=== PATIENT | female | born 1940 | race Caucasian/White ===

== ENCOUNTER 2024-06-15 21:34 | Inpatient (IN) | payer MEDICARE, OTHER ==
[2024-06-15 22:03] LABS: HEMATOCRIT 39.9 % (34.2-48.2); HEMOGLOBIN 12.9 g/dL (11.4-15.5); MEAN CORPUSCULAR HGB CONC 32.4 g/dL (31.9-34.8); MEAN CORPUSCULAR VOLUME 92.9 fL (76.7-100.5); MEAN PLATELET VOLUME 7.5 fL (7.1-12.4); PLATELET COUNT,PLT 573 x10(3)uL (151-488); RED CELL DISTRIBUTION WIDTH 14.8 % (12.3-16.5); WHITE BLOOD CELL COUNT,WBC 20.7 x10-3/uL (3.0-10.3)
[2024-06-15 22:09] LABS: BLOOD UREA NITROGEN,BUN 23 mg/dL (7-18); CALCIUM 9.4 mg/dL (8.6-10.2); CARBON DIOXIDE,CO2 25 mmol/L (21-32); CHLORIDE,CL 105 mmol/L (100-110); ESTIMATED GFR 56 mL/min (>60); GLUCOSE RANDOM 124 mg/dL (80-116); POTASSIUM,K 3.5 mmol/L (3.5-5.3); SODIUM,NA 145 mmol/L (135-145)
[2024-06-15 22:15] LABS: A/G RATIO 0.4; ALANINE AMINOTRANSFERASE,ALT 99 U/L (12-36); ALBUMIN 2.3 g/dL (3.2-4.6); ALKALINE PHOSPHATASE 166 IU/L (56-112); ASPARTATE AMNIOTRANSFERASE,AST 81 IU/L (5-25); BILIRUBIN TOTAL 0.7 mg/dL (0.1-1.3); MAGNESIUM 2.2 mg/dL (1.8-2.5); PROTEIN TOTAL,TP 7.9 g/dL (6.0-8.0)
[2024-06-15 22:17] LABS: TROPONIN I 27.7 pg/mL (4.0-60.3)
[2024-06-15 22:20] LABS: BAND PERCENT MAN 4 % (0-6); LYMPHOCYTES PERCENT MAN 4 % (13-37); MONOCYTES PERCENT MAN 5 % (4-12); SEG NEUTROPHILS PERCENT MAN 87 % (46-82)
[2024-06-15] MEDS: Sodium Chloride 0.9% 1,000 ML IV ONE ×2 (22:22→23:50)
[2024-06-15 22:24] LABS: LACTIC ACID 2.7 mmol/L (0.4-2.0)
[2024-06-15 22:26] LABS: C-REACTIVE PROTEIN 15.8 mg/dL (<0.50)
[2024-06-15 22:33] LABS: CREATINE KINASE,CK 1364 IU/L (60-160)
[2024-06-15 23:17] LABS: APPEARANCE,URINE CLOUDY (CLEAR); COLOR,URINE YELLOW (YELLOW)
[2024-06-15 23:23] LABS: BILIRUBIN,URINE SMALL (NEGATIVE); GLUCOSE,URINE NORMAL (NORMAL); KETONES,URINE 50 mg/dL (NEGATIVE); PROTEIN,URINE 30 mg/dL (NEGATIVE)
[2024-06-15 23:24] LABS: LEUKOCYTE ESTERASE,URINE NEGATIVE (NEGATIVE); NITRITE,URINE NEGATIVE (NEGATIVE); OCCULT BLOOD,URINE LARGE (NEGATIVE); RBC,URINE 50-75 (0-5); UROBILINOGEN,URINE 1 mg/dL (NEGATIVE)
[2024-06-15 23:25] LABS: BACTERIA,URINE FEW (NS); HYALINE CASTS,URINE FEW (NS); SQUAMOUS EPITHELIAL CELLS,UR MODERATE (NS,R,O)
[2024-06-15 23:26] LABS: MUCUS,URINE NUMEROUS (NS)
[2024-06-16] MEDS: cefTRIAXone 1 GM Vial IVPUSH ONE (02:34)
[2024-06-16] MEDS: Sodium Chloride 0.9% 10 ML Syringe FLUSH PRN (02:39)
[2024-06-16] MEDS: Sodium Chloride 0.9% 1,000 ML IV SCH ×2 (02:43→17:33)
[2024-06-16] MEDS: guaiFENesin/Dextromethorphan 100-10 MG/5 ML Soln 5 ML Cup PO PRN (05:46)
[2024-06-16 07:06] LABS: HEMATOCRIT 31.4 % (34.2-48.2); HEMOGLOBIN 10.5 g/dL (11.4-15.5); MEAN CORPUSCULAR HEMOGLOBIN 30.5 pg (23.9-33.9); MEAN CORPUSCULAR HGB CONC 33.4 g/dL (31.9-34.8); MEAN CORPUSCULAR VOLUME 91.4 fL (76.7-100.5); MEAN PLATELET VOLUME 7.4 fL (7.1-12.4); PLATELET COUNT,PLT 481 x10(3)uL (151-488); RED BLOOD CELL COUNT 3.44 x10(6)uL (3.60-5.20); RED CELL DISTRIBUTION WIDTH 13.4 % (12.3-16.5)
[2024-06-16 07:10] LABS: A/G RATIO 0.4; ALANINE AMINOTRANSFERASE,ALT 91 U/L (12-36); ALBUMIN 1.8 g/dL (3.2-4.6); ALKALINE PHOSPHATASE 137 IU/L (56-112); ASPARTATE AMNIOTRANSFERASE,AST 98 IU/L (5-25); BILIRUBIN TOTAL 0.4 mg/dL (0.1-1.3); BLOOD UREA NITROGEN,BUN 18 mg/dL (7-18); BUN/CREATININE RATIO 22.5 (9-20); CALCIUM 7.9 mg/dL (8.6-10.2); CARBON DIOXIDE,CO2 23 mmol/L (21-32); CHLORIDE,CL 109 mmol/L (100-110); CREATININE 0.8 mg/dL (0.55-1.02); ESTIMATED GFR 73 mL/min (>60); GLUCOSE RANDOM 110 mg/dL (80-116); POTASSIUM,K 2.9 mmol/L (3.5-5.3); PROTEIN TOTAL,TP 6.2 g/dL (6.0-8.0); SODIUM,NA 144 mmol/L (135-145)
[2024-06-16 07:44] LABS: CREATINE KINASE,CK 1146 IU/L (60-160)
[2024-06-16 07:49] LABS: LYMPHOCYTES PERCENT MAN 8 % (13-37); MONOCYTES PERCENT MAN 7 % (4-12); SEG NEUTROPHILS PERCENT MAN 85 % (46-82)
[2024-06-16] MEDS ORDERED: cefTRIAXone 1 GM in Sodium Chloride 0.9% 50 ML IV SCH (08:00)
[2024-06-16] MEDS: atorvaSTATin 10 MG Tab PO SCH (10:18)
[2024-06-16] MEDS: Potassium Chloride 20 MEQ Tab.ER PO SCH (10:18)
[2024-06-16] MEDS: Enoxaparin 40 MG/0.4 ML Syringe SUBCUT SCH (10:19)
[2024-06-16] MEDS: Azithromycin 250 MG Tab PO ONE (18:20)
[2024-06-16] MEDS: cefTRIAXone 1 GM Vial IVPUSH SCH (20:37)
[2024-06-17] MEDS: Benzonatate 100 MG Cap PO PRN (02:29)
[2024-06-17 06:03] LABS: BASOPHILS PERCENT AUTO 0.3 % (0.2-1.5); EOSINOPHILS ABSOLUTE AUTO 0.4 x10-3/uL (0.0-0.8); EOSINOPHILS PERCENT AUTO 2.9 % (0.6-8.1); HEMATOCRIT 31.8 % (34.2-48.2); HEMOGLOBIN 10.8 g/dL (11.4-15.5); LYMPHOCYTES ABSOLUTE AUTO 1.7 x10-3/uL (1.0-4.4); LYMPHOCYTES PERCENT AUTO 12.7 % (18.4-52.1); MEAN CORPUSCULAR HEMOGLOBIN 30.9 pg (23.9-33.9); MEAN CORPUSCULAR HGB CONC 33.9 g/dL (31.9-34.8); MEAN PLATELET VOLUME 7.2 fL (7.1-12.4); MONOCYTES ABSOLUTE AUTO 1.1 x10-3/uL (0.3-1.0); NEUTROPHILS ABSOLUTE AUTO 10.2 x10-3/uL (1.5-6.3); NEUTROPHILS PERCENT AUTO 76.1 % (30.8-76.2); PLATELET COUNT,PLT 490 x10(3)uL (151-488); RED BLOOD CELL COUNT 3.49 x10(6)uL (3.60-5.20); RED CELL DISTRIBUTION WIDTH 13.9 % (12.3-16.5); WHITE BLOOD CELL COUNT,WBC 13.3 x10-3/uL (3.0-10.3)
[2024-06-17 06:23] LABS: A/G RATIO 0.4; ALANINE AMINOTRANSFERASE,ALT 84 U/L (12-36); ALBUMIN 1.8 g/dL (3.2-4.6); ALKALINE PHOSPHATASE 125 IU/L (56-112); ASPARTATE AMNIOTRANSFERASE,AST 76 IU/L (5-25); BILIRUBIN TOTAL 0.5 mg/dL (0.1-1.3); BLOOD UREA NITROGEN,BUN 8 mg/dL (7-18); CALCIUM 8.2 mg/dL (8.6-10.2); CARBON DIOXIDE,CO2 25 mmol/L (21-32); CHLORIDE,CL 106 mmol/L (100-110); CREATININE 0.8 mg/dL (0.55-1.02); ESTIMATED GFR 73 mL/min (>60); GLUCOSE RANDOM 95 mg/dL (80-116); POTASSIUM,K 3.1 mmol/L (3.5-5.3); PROTEIN TOTAL,TP 6.2 g/dL (6.0-8.0); SODIUM,NA 142 mmol/L (135-145)
[2024-06-17 06:27] LABS: CREATINE KINASE,CK 689 IU/L (60-160)
[2024-06-17] MEDS: Potassium Chloride 20 MEQ Tab.ER PO SCH (09:13)
[2024-06-17 09:41] LABS: BILIRUBIN,URINE NEGATIVE (NEGATIVE); GLUCOSE,URINE NORMAL (NORMAL); KETONES,URINE NEGATIVE (NEGATIVE); LEUKOCYTE ESTERASE,URINE NEGATIVE (NEGATIVE); NITRITE,URINE NEGATIVE (NEGATIVE); OCCULT BLOOD,URINE NEGATIVE (NEGATIVE); PROTEIN,URINE NEGATIVE (NEGATIVE); UROBILINOGEN,URINE NORMAL (NEGATIVE)
[2024-06-17 09:47] LABS: APPEARANCE,URINE CLEAR (CLEAR); COLOR,URINE YELLOW (YELLOW); SQUAMOUS EPITHELIAL CELLS,UR FEW (NS,R,O); WBC,URINE 0-5 (0-5)
[2024-06-17 09:48] LABS: BACTERIA,URINE FEW (NS)
[2024-06-17] MEDS: Azithromycin 250 MG Tab PO SCH (17:13)
[2024-06-18 06:22] LABS: BASOPHILS PERCENT AUTO 0.3 % (0.2-1.5); EOSINOPHILS ABSOLUTE AUTO 0.2 x10-3/uL (0.0-0.8); EOSINOPHILS PERCENT AUTO 2.2 % (0.6-8.1); HEMATOCRIT 31.7 % (34.2-48.2); HEMOGLOBIN 10.9 g/dL (11.4-15.5); LYMPHOCYTES ABSOLUTE AUTO 1.6 x10-3/uL (1.0-4.4); LYMPHOCYTES PERCENT AUTO 14.7 % (18.4-52.1); MEAN CORPUSCULAR HEMOGLOBIN 31.4 pg (23.9-33.9); MEAN CORPUSCULAR HGB CONC 34.3 g/dL (31.9-34.8); MEAN CORPUSCULAR VOLUME 91.5 fL (76.7-100.5); MEAN PLATELET VOLUME 7.1 fL (7.1-12.4); MONOCYTES PERCENT AUTO 9.4 % (4.4-15.7); NEUTROPHILS PERCENT AUTO 73.4 % (30.8-76.2); PLATELET COUNT,PLT 448 x10(3)uL (151-488); RED BLOOD CELL COUNT 3.46 x10(6)uL (3.60-5.20); RED CELL DISTRIBUTION WIDTH 13.8 % (12.3-16.5)
[2024-06-18 06:31] LABS: A/G RATIO 0.4; ALANINE AMINOTRANSFERASE,ALT 81 U/L (12-36); ALBUMIN 1.9 g/dL (3.2-4.6); ALKALINE PHOSPHATASE 118 IU/L (56-112); ASPARTATE AMNIOTRANSFERASE,AST 62 IU/L (5-25); BILIRUBIN TOTAL 0.4 mg/dL (0.1-1.3); BLOOD UREA NITROGEN,BUN 9 mg/dL (7-18); BUN/CREATININE RATIO 11.3 (9-20); CALCIUM 8.5 mg/dL (8.6-10.2); CARBON DIOXIDE,CO2 27 mmol/L (21-32); CHLORIDE,CL 107 mmol/L (100-110); CREATININE 0.8 mg/dL (0.55-1.02); ESTIMATED GFR 73 mL/min (>60); GLUCOSE RANDOM 102 mg/dL (80-116); POTASSIUM,K 3.4 mmol/L (3.5-5.3); PROTEIN TOTAL,TP 6.3 g/dL (6.0-8.0); SODIUM,NA 143 mmol/L (135-145)
[2024-06-18] MEDS: Potassium Chloride 20 MEQ Tab.ER PO ONE (09:47)
[2024-06-19 06:20] LABS: BASOPHILS ABSOLUTE AUTO 0.1 x10-3/uL (0.0-0.1); BASOPHILS PERCENT AUTO 0.5 % (0.2-1.5); EOSINOPHILS ABSOLUTE AUTO 0.3 x10-3/uL (0.0-0.8); EOSINOPHILS PERCENT AUTO 2.8 % (0.6-8.1); HEMATOCRIT 35.7 % (34.2-48.2); HEMOGLOBIN 11.6 g/dL (11.4-15.5); LYMPHOCYTES ABSOLUTE AUTO 1.8 x10-3/uL (1.0-4.4); LYMPHOCYTES PERCENT AUTO 15.4 % (18.4-52.1); MEAN CORPUSCULAR HEMOGLOBIN 29.4 pg (23.9-33.9); MEAN CORPUSCULAR HGB CONC 32.4 g/dL (31.9-34.8); MEAN CORPUSCULAR VOLUME 90.9 fL (76.7-100.5); MEAN PLATELET VOLUME 7.2 fL (7.1-12.4); MONOCYTES ABSOLUTE AUTO 1.1 x10-3/uL (0.3-1.0); MONOCYTES PERCENT AUTO 9.3 % (4.4-15.7); NEUTROPHILS ABSOLUTE AUTO 8.6 x10-3/uL (1.5-6.3); PLATELET COUNT,PLT 504 x10(3)uL (151-488); RED BLOOD CELL COUNT 3.93 x10(6)uL (3.60-5.20); RED CELL DISTRIBUTION WIDTH 14.3 % (12.3-16.5); WHITE BLOOD CELL COUNT,WBC 11.9 x10-3/uL (3.0-10.3)
[2024-06-19 06:29] LABS: A/G RATIO 0.4; ALANINE AMINOTRANSFERASE,ALT 87 U/L (12-36); ALKALINE PHOSPHATASE 113 IU/L (56-112); ASPARTATE AMNIOTRANSFERASE,AST 61 IU/L (5-25); BILIRUBIN TOTAL 0.4 mg/dL (0.1-1.3); BLOOD UREA NITROGEN,BUN 9 mg/dL (7-18); BUN/CREATININE RATIO 11.3 (9-20); CALCIUM 8.6 mg/dL (8.6-10.2); CARBON DIOXIDE,CO2 28 mmol/L (21-32); CHLORIDE,CL 105 mmol/L (100-110); CREATININE 0.8 mg/dL (0.55-1.02); ESTIMATED GFR 73 mL/min (>60); GLUCOSE RANDOM 107 mg/dL (80-116); MAGNESIUM 2.1 mg/dL (1.8-2.5); POTASSIUM,K 3.6 mmol/L (3.5-5.3); PROTEIN TOTAL,TP 6.6 g/dL (6.0-8.0); SODIUM,NA 142 mmol/L (135-145)
[2024-06-19] MEDS: Acetaminophen 325 MG Tab PO PRN (13:04)
[2024-06-19] MEDS: Melatonin 3 MG Tab PO PRN (21:34)
[2024-06-20 06:56] LABS: A/G RATIO 0.5; ALANINE AMINOTRANSFERASE,ALT 83 U/L (12-36); ALBUMIN 2.1 g/dL (3.2-4.6); ALKALINE PHOSPHATASE 104 IU/L (56-112); ASPARTATE AMNIOTRANSFERASE,AST 54 IU/L (5-25); BILIRUBIN TOTAL 0.3 mg/dL (0.1-1.3); BLOOD UREA NITROGEN,BUN 10 mg/dL (7-18); BUN/CREATININE RATIO 12.5 (9-20); CALCIUM 8.6 mg/dL (8.6-10.2); CARBON DIOXIDE,CO2 30 mmol/L (21-32); CHLORIDE,CL 105 mmol/L (100-110); CREATININE 0.8 mg/dL (0.55-1.02); ESTIMATED GFR 73 mL/min (>60); GLUCOSE RANDOM 96 mg/dL (80-116); POTASSIUM,K 3.5 mmol/L (3.5-5.3); PROTEIN TOTAL,TP 6.7 g/dL (6.0-8.0); SODIUM,NA 142 mmol/L (135-145)
[2024-06-20 07:30] LABS: BASOPHILS ABSOLUTE AUTO 0.1 x10-3/uL (0.0-0.1); BASOPHILS PERCENT AUTO 0.8 % (0.2-1.5); EOSINOPHILS ABSOLUTE AUTO 0.4 x10-3/uL (0.0-0.8); EOSINOPHILS PERCENT AUTO 3.4 % (0.6-8.1); HEMATOCRIT 36.9 % (34.2-48.2); HEMOGLOBIN 11.4 g/dL (11.4-15.5); LYMPHOCYTES ABSOLUTE AUTO 1.9 x10-3/uL (1.0-4.4); MEAN CORPUSCULAR HEMOGLOBIN 28.3 pg (23.9-33.9); MEAN CORPUSCULAR HGB CONC 30.8 g/dL (31.9-34.8); MEAN CORPUSCULAR VOLUME 91.9 fL (76.7-100.5); MEAN PLATELET VOLUME 7.8 fL (7.1-12.4); NEUTROPHILS ABSOLUTE AUTO 7.3 x10-3/uL (1.5-6.3); NEUTROPHILS PERCENT AUTO 68.8 % (30.8-76.2); PLATELET COUNT,PLT 592 x10(3)uL (151-488); RED BLOOD CELL COUNT 4.02 x10(6)uL (3.60-5.20); RED CELL DISTRIBUTION WIDTH 14.2 % (12.3-16.5); WHITE BLOOD CELL COUNT,WBC 10.6 x10-3/uL (3.0-10.3)
[2024-06-21 06:30] LABS: BASOPHILS ABSOLUTE AUTO 0.1 x10-3/uL (0.0-0.1); BASOPHILS PERCENT AUTO 0.6 % (0.2-1.5); EOSINOPHILS ABSOLUTE AUTO 0.3 x10-3/uL (0.0-0.8); EOSINOPHILS PERCENT AUTO 3.2 % (0.6-8.1); HEMATOCRIT 35.9 % (34.2-48.2); HEMOGLOBIN 11.3 g/dL (11.4-15.5); MEAN CORPUSCULAR HEMOGLOBIN 28.9 pg (23.9-33.9); MEAN CORPUSCULAR HGB CONC 31.4 g/dL (31.9-34.8); MEAN PLATELET VOLUME 7.3 fL (7.1-12.4); MONOCYTES PERCENT AUTO 9.7 % (4.4-15.7); NEUTROPHILS ABSOLUTE AUTO 7.1 x10-3/uL (1.5-6.3); NEUTROPHILS PERCENT AUTO 67.5 % (30.8-76.2); PLATELET COUNT,PLT 561 x10(3)uL (151-488); RED CELL DISTRIBUTION WIDTH 14.7 % (12.3-16.5); WHITE BLOOD CELL COUNT,WBC 10.6 x10-3/uL (3.0-10.3)
[2024-06-21 08:33] VITALS: BP 128/67; PULSE 92
[2024-06-23 12:02] LABS: HEPATITIS A ANTIBODY, IGM Negative (Negative); HEPATITIS B CORE ANTIBODY, IGM Negative (Negative); HEPATITIS B SURFACE ANTIGEN Negative (Negative); HEPATITIS C AB CIA INTERP Negative (Negative)
== END 2024-06-21 10:15 | disposition home or self-care (01) | DRG 557 ==
LOC: FB.ED 21:34 → FB.MS 06-16 00:58
PROVIDERS: ADMIT Family Medicine; ATTEND Internal Medicine
DX: M62.82 Rhabdomyolysis (principal); J18.9 Pneumonia, unspecified organism; F01.B0 Vascular dementia, moderate, without behavioral disturbance, psychotic disturbance, mood disturbance, and anxiety; N30.00 Acute cystitis without hematuria; R74.8 Abnormal levels of other serum enzymes; E86.0 Dehydration; M19.90 Unspecified osteoarthritis, unspecified site; F03.90 Unspecified dementia, unspecified severity, without behavioral disturbance, psychotic disturbance, mood disturbance, and anxiety; J01.00 Acute maxillary sinusitis, unspecified; J20.9 Acute bronchitis, unspecified; E78.00 Pure hypercholesterolemia, unspecified; M54.9 Dorsalgia, unspecified; G89.29 Other chronic pain; F41.9 Anxiety disorder, unspecified; E87.6 Hypokalemia; R79.89 Other specified abnormal findings of blood chemistry; Z79.899 Other long term (current) drug therapy; Z90.49 Acquired absence of other specified parts of digestive tract
CPT/HCPCS: 36415; 70450; 71045; 72170; 80053; 80074; 81001; 82550; 83605; 83735; 83880; 84484; 85025; 86140; 87040; 87086; 87428-QW; 93005; 93010; 97116-GP; 97161-GP; 97165-GO; 97530-GO; 97530-GP; 97535-GO; 99222; 99231; 99232; 99238; 99285; A9270-GY; J0696; J1650; J7030